=== PATIENT | male | born 1955 | race Caucasian/White ===

== ENCOUNTER 2017-06-04 22:57 | Emergency (ER) | payer OTHER ==
[2017-06-04] MEDS ORDERED: Tenecteplase 50 MG Kit ONE (23:01)
[2017-06-04] MEDS ORDERED: Heparin Sodium 5,000 Units/ML Vial IVPUSH ONE ×2 (23:03→23:10)
[2017-06-04] MEDS ORDERED: fentaNYL 100 MCG/2 ML SDV IVPUSH STA (23:05)
[2017-06-04] MEDS ORDERED: fentaNYL 100 MCG/2 ML SDV ONE (23:05)
[2017-06-04] MEDS ORDERED: Sodium Chloride 0.9% 2.5 ML Syringe FLUSH PRN (23:11)
[2017-06-04] MEDS ORDERED: Sodium Chloride 0.9% 10 ML Syringe FLUSH PRN (23:11)
[2017-06-04] MEDS ORDERED: Clopidogrel 75 MG Tab PO ONE (23:11)
[2017-06-04] MEDS ORDERED: Heparin Sodium 5,000 Units/ML Vial ONE (23:11)
[2017-06-04] MEDS ORDERED: Clopidogrel 75 MG Tab ONE (23:11)
[2017-06-04] MEDS ORDERED: Nitroglycerin/D5W 25 MG/250 ML BOTTLE IV SCH (23:15)
[2017-06-04] MEDS ORDERED: Tenecteplase 50 MG Kit IV STA (23:15)
[2017-06-04] MEDS ORDERED: Heparin Sod,Pork In 0.45% Nacl 25,000 UNIT/500 ML IV.SOLN IV SCH (23:15)
--- NOTE | 2017-06-04 23:23 | EDM.PDOC ---
ED HPI GENERAL MEDICAL PROBLEM - General Chief Complaint: Chest Pain Stated Complaint: CHEST PAIN Time Seen by Provider: 06/04/17 22:57 - History of Present Illness INITIAL COMMENTS - FREE TEXT/NARRATIVE: HISTORY AND PHYSICAL: History of present illness: Patient is a 61-year-old male who states he has no significant medical history but does not see the doctor very often and smokes one pack of cigarettes a day but no other social history presents via EMS with complaints of left-sided chest pain radiating to his left arm that started 25-30 minutes ago. The patient took 1 baby aspirin at home and he was given 3 baby aspirins one spray of nitroglycerin and Zofran per EMS. The patient rates his pain as a 7/10 and has no history of any cardiac testing. Patient was started on nitro drip and brought here via EMS with concerns about an acute STEMI. The patient states that earlier today he was in his usual state of health and had no significant problems. He says he has had chest pain in the past and was told it was indigestion but never had any cardiac testing. Here the patient still rates his pain as a 7/10 and is uncomfortable in the ED. He denies any shortness of breath abdominal pain nausea or vomiting and has no upper respiratory symptoms. Review of systems: As per history of present illness and below otherwise all systems reviewed and negative. Past medical history: As per history of present illness and as reviewed below otherwise noncontributory. Surgical history: As per history of present illness and as reviewed below otherwise noncontributory. Social history: No reported history of drug or alcohol abuse. Family history: As per history of present illness and as reviewed below otherwise noncontributory. Physical exam: General: Well-developed well-nourished man who is vital signs are noted by me. He is slightly pallid and diaphoretic on my evaluation. HEENT: Atraumatic, normocephalic, pupils reactive, negative for conjunctival pallor or scleral icterus, mucous membranes moist, throat clear, neck supple, nontender, trachea midline. Lungs: Clear to auscultation, breath sounds equal bilaterally, chest nontender. No work of breathing or sensory muscle use Heart: S1S2, regular, negative for clicks, rubs, or JVD. Abdomen: Soft, nondistended, nontender. Negative for masses or hepatosplenomegaly. Negative for costovertebral tenderness. Pelvis: Stable nontender. Genitourinary: Deferred. Rectal: Deferred. Extremities: Atraumatic, negative for cords or calf pain. Neurovascular unremarkable. No pedal edema Neuro: Awake, alert, oriented. Cranial nerves II through XII unremarkable. Cerebellum unremarkable. Motor and sensory unremarkable throughout. Exam nonfocal. Diagnostics: EKG chest x-ray CBC CMP INR troponin Therapeutics: IV O2 monitor fentanyl heparin Plavix TNKase nitro drip Patient was given aspirin prior to arrival by EMS 2300: Case was discussed with the ER physician Dr. Hernandez at [facility] in [place] and he accepts the patient for acute STEMI. Case was also discussed with their personal shopper electronic operator, Dr. Mcintosh, at 2304, who agrees to give TNKase due to the transit time. All of these conversations were discussed with the patient and family at bedside. Currently flight team is at bedside at 23/05/14. They will package for emergent transfer. Patient is still containing a pain and will be treated appropriately for EMS. All pending test results will be followed up by me and will also be given to the receiving hospital once available. Critical care time including procedures: 31min Impression: Acute STEMI AL Definitive disposition and diagnosis as appropriate pending reevaluation and review of above. ED ROS GENERAL - Review of Systems Review Of Systems: ROS reveals no pertinent complaints other than HPI. ED EXAM, GENERAL - Physical Exam Exam: See Below (See dictation) Course - Orders/Labs/Meds Orders: Active Orders 24 hr Category Date Time Status Cardiac Monitoring [RC] . DIRECTED Care 06/04/17 23:00 Ordered EKG Documentation Completion [RC] STAT Care 06/04/17 23:00 Ordered Oxygen Therapy, ED [RC] ASDIRECTED Care 06/04/17 23:00 Ordered Pulse Oximetry [RC] ASDIRECTED Care 06/04/17 23:00 Ordered Chest 1V Frontal [CR] Stat Exams 06/04/17 23:03 Ordered COMPREHENSIVE METABOLIC PN,CMP [CHEM] Stat Lab 06/04/17 23:00 Ordered INR,PT,PROTHROMBIN TIME [COAG] Stat Lab 06/04/17 23:00 Ordered TROPONIN I [CHEM] Stat Lab 06/04/17 23:03 Ordered Heparin Sod,Pork In 0.45% Nacl [Heparin-1/2Ns 25,000 Med 06/04/17 23:15 Ordered Units/500] 25,000 unit in 500 ml IV TITRATE Nitroglycerin/D5W [Nitroglycerin 25 MG/D5W 250 ML] 250 Med 06/04/17 23:15 Ordered ml IV TITRATE Sodium Chloride 0.9% [Saline Flush] Med 06/04/17 23:11 Ordered 10 ml FLUSH ASDIRECTED PRN Sodium Chloride 0.9% [Saline Flush] Med 06/04/17 23:11 Ordered 2.5 ml FLUSH ASDIRECTED PRN Saline Lock Insert [OM.PC] Stat Oth 06/04/17 23:00 Ordered Medication Orders Heparin Sod,Pork In 0.45% Nacl (Heparin-1/2ns 25,000 Units/500) 25,000 unit in 500 mls @ 0 mls/hr IV TITRATE HOLGER; Protocol Nitroglycerin/Dextrose (Nitroglycerin 25 Mg/D5w 250 Ml) 250 mls @ 3 mls/hr IV TITRATE HOLGER Sodium Chloride (Saline Flush) 10 ml FLUSH ASDIRECTED PRN PRN Reason: Keep Vein Open Sodium Chloride (Saline Flush) 2.5 ml FLUSH ASDIRECTED PRN PRN Reason: Keep Vein Open Labs: Laboratory Tests 06/04/17 Range/Units 23:00 WBC 17.03 H (4.0-11.0) K/uL RBC 5.04 (4.50-5.90) M/uL Hgb 15.7 (13.0-17.0) g/dL Hct 44.8 (38.0-50.0) % MCV 88.9 (80.0-98.0) fL MCH 31.2 (27.0-32.0) pg MCHC 35.0 (31.0-37.0) g/dL RDW Std Deviation 41.5 (28.0-62.0) fl RDW Coeff of [place] 13 (11.0-15.0) % Plt Count 217 (150-400) K/uL MPV 11.30 (7.40-12.00) fL Neut % (Auto) 44.7 L (48.0-80.0) % Lymph % (Auto) 44.4 H (16.0-40.0) % [place] % (Auto) 8.3 (0.0-15.0) % Eos % (Auto) 2.2 (0.0-7.0) % Baso % (Auto) 0.4 (0.0-1.5) % Neut # (Auto) 7.6 H (1.4-5.7) K/uL Lymph # (Auto) 7.6 H (0.6-2.4) K/uL [place] # (Auto) 1.4 H (0.0-0.8) K/uL Eos # (Auto) 0.4 (0.0-0.7) K/uL Baso # (Auto) 0.1 (0.0-0.1) K/uL Nucleated RBC % 0.0 /100WBC Nucleated RBCs # 0 K/uL Meds: Medications Generic Name Dose Route Start Last Admin Trade Name Freq PRN Reason Stop Dose Admin Heparin Sod,Pork In 0.45% Nacl 25,000 unit in 500 mls @ 0 mls/hr 06/04/17 23: 15 Heparin-1/2ns 25,000 Units/500 IV TITRATE HOLGER Protocol 12 UNITS/KG/HR Nitroglycerin/Dextrose 250 mls @ 3 mls/hr 06/04/17 23:15 Nitroglycerin 25 Mg/D5w 250 Ml IV TITRATE HOLGER 5 MCG/MIN Sodium Chloride 10 ml 06/04/17 23:11 Saline Flush FLUSH ASDIRECTED PRN Keep Vein Open Sodium Chloride 2.5 ml 06/04/17 23:11 Saline Flush FLUSH ASDIRECTED PRN Keep Vein Open Discontinued Medications Generic Name Dose Route Start Last Admin Trade Name Freq PRN Reason Stop Dose Admin Clopidogrel Bisulfate 300 mg 06/04/17 23:11 Plavix PO 06/04/17 23:12 ONETIME ONE Clopidogrel Bisulfate Confirm 06/04/17 23:11 Plavix Administered 06/04/17 23:12 Dose 300 mg .ROUTE .STK-MED ONE Fentanyl Confirm 06/04/17 23:05 Sublimaze Administered 06/04/17 23:06 Dose 100 mcg .ROUTE .STK-MED ONE Heparin Sodium (Porcine) 5,000 units 06/04/17 23:03 Heparin Sodium IVPUSH 06/04/17 23:04 ONETIME ONE Heparin Sodium (Porcine) Confirm 06/04/17 23:11 Heparin Sodium Administered 06/04/17 23:12 Dose 5,000 units .ROUTE .STK-MED ONE Tenecteplase Confirm 06/04/17 23:01 Tnkase Administered 06/04/17 23:02 Dose 50 mg .ROUTE .STK-MED ONE Departure - Departure Time of Disposition: 23:23 Disposition: DC/Tfer to Acute Hospital 02 Condition: Good Clinical Impression: Acute ST elevation myocardial infarction (STEMI) Qualifiers: Involved coronary artery: unspecified coronary artery Qualified Code(s): I21.3 - ST elevation (STEMI) myocardial infarction of unspecified site - Discharge Information - My Orders Last 24 Hours: My Active Orders 06/04/17 23:00 Cardiac Monitoring [RC] . DIRECTED EKG Documentation Completion [RC] STAT Oxygen Therapy, ED [RC] ASDIRECTED Pulse Oximetry [RC] ASDIRECTED COMPREHENSIVE METABOLIC PN,CMP [CHEM] Stat INR,PT,PROTHROMBIN TIME [COAG] Stat Saline Lock Insert [OM.PC] Stat 06/04/17 23:03 Chest 1V Frontal [CR] Stat TROPONIN I [CHEM] Stat 06/04/17 23:11 Sodium Chloride 0.9% [Saline Flush] 10 ml FLUSH ASDIRECTED PRN Sodium Chloride 0.9% [Saline Flush] 2.5 ml FLUSH ASDIRECTED PRN 06/04/17 23:15 Heparin Sod,Pork In 0.45% Nacl [Heparin-1/2Ns 25,000 Units/500] 25,000 unit in 500 ml IV TITRATE Nitroglycerin/D5W [Nitroglycerin 25 MG/D5W 250 ML] 250 ml IV TITRATE - Assessment/Plan Last 24 Hours: My Active Orders 06/04/17 23:00 Cardiac Monitoring [RC] . DIRECTED EKG Documentation Completion [RC] STAT Oxygen Therapy, ED [RC] ASDIRECTED Pulse Oximetry [RC] ASDIRECTED COMPREHENSIVE METABOLIC PN,CMP [CHEM] Stat INR,PT,PROTHROMBIN TIME [COAG] Stat Saline Lock Insert [OM.PC] Stat 06/04/17 23:03 Chest 1V Frontal [CR] Stat TROPONIN I [CHEM] Stat 06/04/17 23:11 Sodium Chloride 0.9% [Saline Flush] 10 ml FLUSH ASDIRECTED PRN Sodium Chloride 0.9% [Saline Flush] 2.5 ml FLUSH ASDIRECTED PRN 06/04/17 23:15 Heparin Sod,Pork In 0.45% Nacl [Heparin-1/2Ns 25,000 Units/500] 25,000 unit in 500 ml IV TITRATE Nitroglycerin/D5W [Nitroglycerin 25 MG/D5W 250 ML] 250 ml IV TITRATE
[2017-06-04] MEDS ORDERED: EPINEPHrine 1 MG/1 ML Amp IVPUSH ONE (23:25)
[2017-06-04 23:29] LABS: CHLORIDE,CL 103 mmol/L (98-107); SODIUM,NA 136 mmol/L (136-148)
[2017-06-04] MEDS ORDERED: EPINEPHrine 1:10,000 1 MG/10 ML Syringe ONE (23:30)
[2017-06-05] MEDS ORDERED: Heparin Sodium 5,000 Units/ML Vial IVPUSH ONE (03:30)
--- NOTE | 2017-06-05 13:54 | CR ---
EXAM DATE: 06/04/17 PATIENT'S AGE: 61 Patient: CONNER FRANK Facility: [place], [place] Site . Site : 1955 Study: XRay Chest [id number]/1/[id number] 11:16:53 PM Ordering Physician: Doctor Chong Final Report: Indication: Chest pain. SOB Technique: Chest 1 view Comparison: None Findings/Impression: Cardiovascular and mediastinum: Unremarkable cardiomediastinal silhouette for a portable technique. Lungs and pleural space: Lungs are clear. No sign of infiltrate or mass. No sign of pleural effusion. No pneumothorax. Bones and soft tissues: A small calcific or metallic density in the inferior right axillary soft tissues, nonspecific. Dictated by Oniel Schwartz MD @ 06/05/2017 12:11:03 AM Dictated by: Oniel Schwartz MD @ 06/05/2017 00:11:08 (Electronic Signature) Report Signed by Proxy. ZANDER
== END 2017-06-04 23:37 ==
LOC: MW.ED 22:57
DX: I21.3 ST elevation (STEMI) myocardial infarction of unspecified site (principal); F17.210 Nicotine dependence, cigarettes, uncomplicated
CPT/HCPCS: 71045; 80053; 84484; 85025; 85610; 96374; 96375; 96376; 99291; A9270; J0171; J1644; J3010; J3101; 93005; 99285